=== PATIENT | female | born 1965 | race Caucasian/White ===

== ENCOUNTER 2018-01-07 19:59 | Emergency (ER) | payer OTHER ==
[~2018-01-07] VITALS: Ht 157.5 cm; Wt 61.4 kg
[~2018-01-07 19:59] MED LIST: LEVOTHYROXINE0.05 MG PO; MEDI-FIRST ASP325 MG PO; PERCOCET 325 MG1 TA2 PO; WELLBUTRIN XL150 MG PO
[2018-01-07] MEDS ORDERED: SYNTHROID RP0.088 MG PO (20:33)
[2018-01-07] MEDS ORDERED: PROZAC40 M1 PO (20:33)
[2018-01-07] MEDS ORDERED: CYCLOBENZAPRINE10 M1 PO (20:33)
[2018-01-07] MEDS ORDERED: ZANAFLEX4 M1 PO (20:34)
[2018-01-07] MEDS ORDERED: B COMPLEX1 EACH PO (20:34)
[2018-01-07] MEDS ORDERED: NORCO 325 MG-51 TA1 PO (21:25)
[2018-01-07 21:35] VITALS: BP 128/68
== END 2018-01-07 21:35 | disposition home or self-care (01) ==
LOC: ED 19:59
DX: S52.501A Unspecified fracture of the lower end of right radius, initial encounter for closed fracture (principal); W01.0XXA Fall on same level from slipping, tripping and stumbling without subsequent striking against object, initial encounter; Y92.828 Other wilderness area as the place of occurrence of the external cause; Z79.899 Other long term (current) drug therapy

== ENCOUNTER 2018-11-04 10:39 | Emergency (ER) | payer OTHER ==
[~2018-11-04 10:39] MED LIST changes: +B COMPLEX1 EACH PO; +CYCLOBENZAPRINE10 M1 PO; +NORCO 325 MG-51 TA1 PO; +PROZAC40 M1 PO; +SYNTHROID RP0.088 MG PO; +ZANAFLEX4 M1 PO
[2018-11-04] MEDS ORDERED: PRILOSEC 20MG20 MG PO (10:50)
[2018-11-04] MEDS ORDERED: DICLOFENAC SOD50 MG PO (10:51)
[2018-11-04 11:44] LABS: BASO # 0.1 (0.02-0.10); EOS # 0.3 (0.04-0.40); EOS % 2.5 % (1.0-5.0); HEMATOCRIT 38.7 % (37.0-47.0); HEMOGLOBIN 12.4 g/dL (12.5-16.0); LYMPH# 2.6 (1.50-4.00); MEAN CELL VOLUME 93 fl (78-100); MEAN CORPUSCULAR HEMOGLOBIN 30 pg (27-31); MEAN CORPUSCULAR HGB CONC 32 g/dL (33-37); MONO # 0.6 (0.20-0.80); NEU # 6.9 (1.40-6.50); PLATELET COUNT 390 K/mm3 (130-400); RED BLOOD COUNT 4.15 M/mm3 (4.10-5.30); RED CELL DISTRIBUTION WIDTH 14.6 % (11.5-14.5); WHITE BLOOD COUNT 10.5 K/mm3 (4.8-10.8)
[2018-11-04] MEDS ORDERED: PREDNISONE20 M1 PO (12:37)
[2018-11-04 12:48] LABS: ERYTHROCYTE SEDIMENTATION RATE 20 mm/hr (0-30)
[2018-11-04 12:57] VITALS: BP 149/75
== END 2018-11-04 12:57 | disposition home or self-care (01) ==
LOC: ED 10:39
PROVIDERS: Family Medicine
DX: M54.16 Radiculopathy, lumbar region (principal); Z90.710 Acquired absence of both cervix and uterus; Z96.642 Presence of left artificial hip joint; Z98.1 Arthrodesis status

== ENCOUNTER 2018-12-15 16:18 | Emergency (ER) | payer OTHER ==
[~2018-12-15 16:18] MED LIST changes: +DICLOFENAC SOD50 MG PO; +PREDNISONE20 M1 PO; +PRILOSEC 20MG20 MG PO
[2018-12-15] MEDS ORDERED: ACETAMINOPHEN-H1 TA2 PO (16:31)
[2018-12-15] MEDS ORDERED: LEVOTHYROXIN0.088 MG PO (16:31)
[2018-12-15] MEDS ORDERED: FLUOXETINE HCL20 MG PO (16:31)
[2018-12-15] MEDS ORDERED: AMITRIPTYLINE H25 M2 PO (16:32)
[2018-12-15] MEDS ORDERED: HYDROXYZINE HCL25 M1 PO (16:32)
[2018-12-15] MEDS ORDERED: WELLBUTRIN XL150 M2 PO (16:32)
[2018-12-15 18:34] VITALS: BP 149/98
== END 2018-12-15 18:30 | disposition home or self-care (01) ==
LOC: ED 16:18
DX: M54.5 Low back pain (principal); F17.210 Nicotine dependence, cigarettes, uncomplicated; Z90.49 Acquired absence of other specified parts of digestive tract; Z96.642 Presence of left artificial hip joint
CPT/HCPCS: J1885

== ENCOUNTER → 2020-12-01 | Outpatient (CLI) | payer MEDICARE ==
[~2020-12-01] MED LIST changes: +ACETAMINOPHEN-H1 TA2 PO; +AMITRIPTYLINE H25 M2 PO; +FLUOXETINE HCL20 MG PO; +HYDROXYZINE HCL25 M1 PO; +LEVOTHYROXIN0.088 MG PO; +WELLBUTRIN XL150 M2 PO
== END ==
LOC: LAB 12:20
DX: K61.1 Rectal abscess (principal)

== ENCOUNTER → 2021-05-13 | Outpatient (CLI) | payer MEDICARE | LOC: VAS 09:44 | DX: M79.89 Other specified soft tissue disorders (principal) ==

== ENCOUNTER 2022-03-18 13:52 | Emergency (ER) | payer MEDICARE ==
[2022-03-18 14:33] LABS: BASO # 0.07 K/mm3 (0.02-0.10); EOS % 2.8 % (1.0-5.0); HEMATOCRIT 33.2 % (37.0-47.0); HEMOGLOBIN 10.5 g/dL (12.5-16.0); LYMPH# 2.03 K/mm3 (1.50-4.00); MEAN CELL VOLUME 89 fl (78-100); MEAN CORPUSCULAR HEMOGLOBIN 28 pg (27-31); MEAN CORPUSCULAR HGB CONC 32 g/dL (33-37); MEAN PLATELET VOLUME 10.2 fl (7.4-10.4); MONO # 0.34 K/mm3 (0.20-0.80); NEU # 4.38 K/mm3 (1.40-6.50); PLATELET COUNT 367 K/mm3 (130-400); RED BLOOD COUNT 3.75 M/mm3 (4.10-5.30); RED CELL DISTRIBUTION WIDTH 13.2 % (11.5-14.5)
[2022-03-18] MEDS ORDERED: BACLOFEN10 M1 PO (14:41)
[2022-03-18] MEDS ORDERED: BACLOFEN20 MG PO (14:42)
[2022-03-18] MEDS ORDERED: GABAPENTIN100 MG PO (14:42)
[2022-03-18] MEDS ORDERED: FLUOXETINE40 MG PO (14:42)
[2022-03-18 14:45] LABS: ALBUMIN 4.1 g/dL (3.5-5.0); POTASSIUM 3.8 mmol/L (3.5-5.1); SODIUM 140 mmol/L (136-145)
[2022-03-18 14:46] LABS: CALCIUM 9.1 mg/dL (8.3-10.5)
[2022-03-18 14:47] LABS: GLUCOSE 111 mg/dL (65-105); TOTAL PROTEIN 6.9 g/dL (6.4-8.3)
[2022-03-18 14:48] LABS: CARBON DIOXIDE 22 mmol/L (22-29)
[2022-03-18 14:49] LABS: TOTAL BILIRUBIN 0.2 mg/dL (0.2-1.2)
[2022-03-18 14:52] LABS: AST-SGOT 18 U/L (5-34)
[2022-03-18 14:54] LABS: ALT/SGPT 15 U/L (0-55)
[2022-03-18 15:11] LABS: TROPONIN-I < 0.030 ng/mL (<0.030)
[2022-03-18 15:40] VITALS: BP 114/78
== END 2022-03-18 15:40 | disposition home or self-care (01) ==
LOC: ED 13:52
PROVIDERS: Family Medicine
DX: R07.89 Other chest pain (principal); G90.9 Disorder of the autonomic nervous system, unspecified; D64.9 Anemia, unspecified; Z28.310 Unvaccinated for COVID-19; Z86.79 Personal history of other diseases of the circulatory system
CPT/HCPCS: J7030

== ENCOUNTER → 2024-07-31 | Day surgery (SDC) | payer MEDICARE ==
[~2024-07-31] MED LIST changes: +BACLOFEN10 M1 PO; +BACLOFEN20 MG PO; +FLUOXETINE40 MG PO; +GABAPENTIN100 MG PO
== END ==
LOC: WKSPAIN 07-26 11:03
DX: M47.817 Spondylosis without myelopathy or radiculopathy, lumbosacral region (principal); M96.1 Postlaminectomy syndrome, not elsewhere classified; M54.50 Low back pain, unspecified; M53.3 Sacrococcygeal disorders, not elsewhere classified